=== PATIENT | male | born 2000 | race Caucasian/White ===

== ENCOUNTER 2022-12-09 15:07 | Emergency (ER) | payer OTHER ==
[2022-12-09 15:15] VITALS: BMI 20.9
[2022-12-09] MEDS ORDERED: FAMOTIDINE 20 MG/50 ML IVPB 20 MG/50 ML MG IVPB ONE ×2 (15:51→16:34)
[2022-12-09] MEDS ORDERED: SODIUM CHLORIDE 0.9% 500 ML INFUS.BAG IV ONE (15:51)
[2022-12-09] MEDS ORDERED: ACETAMINOPHEN 325 MG TABLET (FP) PO ONE (15:51)
[2022-12-09] MEDS ORDERED: ACETAMINOPHEN 325 MG TABLET (FP) ONE (16:33)
[2022-12-09 16:37] LABS: BASO % 0.6 % (0-2.0); HEMATOCRIT 44.2 % (35.4-49); HEMOGLOBIN 14.9 GM/dL (11.7-16.9); LYMPH % 31.4 % (8-40); MCHC 33.8 g/dl (32.0-35.9); MEAN CELL VOLUME 79.9 fl (80-96); MEAN PLT VOLUME 7.8 fl (7.5-11.1); MONO % 5.6 % (3.8-10.2); NEUT % 56.4 % (42.8-82.8); PLATELET COUNT 248 10^3/uL (134-434); RBC 5.53 M/mm3 (4.00-5.60); RDW 14.3 % (11.9-15.9); WHITE BLOOD COUNT 8.2 K/mm3 (4.0-10.0)
[2022-12-09 16:50] LABS: POTASSIUM 3.8 mmol/L (3.5-5.1)
[2022-12-09 16:52] LABS: ALBUMIN 4.4 g/dl (3.4-5.0); BLOOD UREA NITROGEN 17.8 mg/dL (7-18); CALCIUM 9.7 mg/dL (8.5-10.1)
[2022-12-09 16:57] LABS: BILIRUBIN,TOTAL 0.5 mg/dL (0.2-1)
[2022-12-09 17:34] LABS: TOT PROT 7.9 g/dl (6.4-8.2)
[2022-12-09 17:59] VITALS: RESP 14
[2022-12-09] MEDS ORDERED: MAG HYDROX/AL HYDROX/SIMETH 30 ML UNIT-DOSE CUP PO ONE (18:22)
[2022-12-09] MEDS ORDERED: SUCRALFATE 1 GM/10 ML UNIT DOSE CUPS PO ONE (18:23)
[2022-12-09] MEDS ORDERED: SUCRALFATE 1 GM TABLET (FP) ONE (18:27)
[2022-12-09] MEDS ORDERED: MAG HYDROX/AL HYDROX/SIMETH 30 ML UNIT-DOSE CUP ONE (18:28)
[2022-12-09 20:00] VITALS: BP 105/66; PULSE 62; TEMP 97.8
== END 2022-12-09 20:57 | disposition home or self-care (01) ==
LOC: JER 15:07
PROC: 3E033GC Introduction of Other Therapeutic Substance into Peripheral Vein, Percutaneous Approach (ICD-10-PCS; principal; 2022-12-09)
DX: R10.812 Left upper quadrant abdominal tenderness (principal); K29.00 Acute gastritis without bleeding
CPT/HCPCS: 36415; 80053; 83690; 85025; 99284-25

== ENCOUNTER 2022-12-23 16:58 | Emergency (ER) | payer OTHER ==
[2022-12-23 17:04] VITALS: BP 105/66; PULSE 78; RESP 20; TEMP 98.5; BMI 21.5
[2022-12-23] MEDS ORDERED: KETOROLAC TROMETHAMINE 15 MG/ML VIAL IM ONE (17:59)
[2022-12-23] MEDS ORDERED: KETOROLAC TROMETHAMINE 15 MG/ML VIAL ONE (18:15)
== END 2022-12-23 18:25 | disposition home or self-care (01) ==
LOC: FER 16:58
PROC: 3E0233Z Introduction of Anti-inflammatory into Muscle, Percutaneous Approach (ICD-10-PCS; principal; 2022-12-23)
DX: R07.89 Other chest pain (principal)
CPT/HCPCS: 71045-TC-FY; 93005; 99284-25

== ENCOUNTER 2023-08-18 11:15 | Emergency (ER) | payer OTHER ==
[2023-08-18 11:21] VITALS: BMI 25.0
[2023-08-18] MEDS ORDERED: IBUPROFEN 400 MG TABLET (FP) PO ONE (12:41)
[2023-08-18] MEDS ORDERED: ACETAMINOPHEN 500 MG TABLET (FP) ONE (12:42)
[2023-08-18] MEDS: IBUPROFEN 400 MG TABLET (FP) PO ONE (12:46)
[2023-08-18] MEDS: ACETAMINOPHEN 500 MG TABLET (FP) PO ONE (12:51)
[2023-08-18 13:16] LABS: THROAT:GRP A STREP NOT DETECTED (NOTDETECTED)
[2023-08-18 14:52] VITALS: BP 102/52; PULSE 90; RESP 16; TEMP 98.9
== END 2023-08-18 16:14 | disposition home or self-care (01) ==
LOC: JERFT 11:15
DX: R05.9 Cough, unspecified (principal); R09.81 Nasal congestion; R07.9 Chest pain, unspecified; R51.9 Headache, unspecified; M79.10 Myalgia, unspecified site; R53.83 Other fatigue; R50.9 Fever, unspecified; J06.9 Acute upper respiratory infection, unspecified; B97.89 Other viral agents as the cause of diseases classified elsewhere; Z20.822 Contact with and (suspected) exposure to COVID-19
CPT/HCPCS: 0241U-QW; 87651; 99283-25

== ENCOUNTER 2024-02-28 11:32 | Emergency (ER) | payer OTHER ==
[2024-02-28 11:53] VITALS: BP 126/72; PULSE 72; RESP 16; TEMP 97; BMI 25.8
== END 2024-02-28 11:40 | disposition left against medical advice (07) ==
LOC: FER 11:32
DX: Z53.21 Procedure and treatment not carried out due to patient leaving prior to being seen by health care provider (principal)
CPT/HCPCS: 99281-25

== ENCOUNTER 2024-02-28 12:21 | Emergency (ER) | payer OTHER ==
[2024-02-28 12:29] VITALS: BP 127/86; PULSE 77; RESP 17; TEMP 98.3; BMI 18.8
[2024-02-28] MEDS ORDERED: DEXAMETHASONE SOD PHOSPHATE 10 MG/1 ML VIAL ONE (13:10)
[2024-02-28] MEDS ORDERED: ACETAMINOPHEN 500 MG TABLET (FP) ONE (13:10)
[2024-02-28] MEDS: DEXAMETHASONE SOD PHOSPHATE 10 MG/1 ML VIAL PO ONE (13:13)
[2024-02-28] MEDS: ACETAMINOPHEN 500 MG TABLET (FP) PO ONE (13:13)
== END 2024-02-28 14:16 | disposition home or self-care (01) ==
LOC: JERFT 12:21
DX: M54.2 Cervicalgia (principal)
CPT/HCPCS: 87651; 99283-25; J1100